=== PATIENT | male | born 1950 | race Caucasian/White ===

== ENCOUNTER 2019-06-28 21:07 | Emergency (ER) | payer MEDICARE ==
[~2019-06-28] VITALS: Ht 180.3 cm; Wt 179.6 kg
[~2019-06-28 21:07] MED LIST: AMLODIPINE BESIL1 GM PO; CYCLOBENZAPRINE5 MG PO; DUTOPROL 100-11 EACH PO; K DUR10 MEQ PO; LEVOTHYROXINE125 MCG PO; LORATADINE10 MG PO; METFORMIN HCL850 MG PO; MOBIC7.5 MG/5 M PO; NIACIN500 MG PO; PRAVASTATIN SOD40 MG PO; SERTRALINE HCL100 MG PO
[2019-06-28] MEDS ORDERED: SODIUM CHLORIDE 0.9% 1000ML 1,000 ML IV SCH (22:00)
--- NOTE | 2019-06-28 23:08 | Diagnostic Imaging Report ---
EXAM: CT Abdomen and Pelvis WITHOUT contrast INDICATION: Hematuria ^[id number] ^[id number] COMPARISON: None. TECHNIQUE: Abdomen and pelvis were scanned utilizing a multidetector helical scanner from the lung base to the pubic symphysis without administration of IV contrast. Absence of intravenous contrast decreases sensitivity for detection of focal lesions and vascular pathology. Coronal and sagittal reformations were obtained. Routine protocol was performed. IV CONTRAST: None ORAL CONTRAST: Water COMPLICATIONS: None RADIATION DOSE: Total DLP: 843.08 mGy*cm Estimated effective dose: (DLP x 0.015 x size factor) mSv CTDIvol has been reviewed. It is below the limits set by the Radiation Protocol Committee (RPC). FINDINGS: Limited study due to body habitus. LINES and TUBES: None. LOWER THORAX: Coronary artery calcifications. Mild bibasilar atelectasis/scarring. HEPATOBILIARY: No focal hepatic lesions. No biliary ductal dilation. GALLBLADDER: Not distended, limiting evaluation. There is minimal surrounding fat stranding. No wall thickening. SPLEEN: Splenomegaly. PANCREAS: No focal masses or ductal dilatation. ADRENALS: No adrenal nodules KIDNEYS/URETERS: No hydronephrosis. Limited for evaluation of renal parenchyma without intravenous contrast. 4.6 cm exophytic left renal posterior superior pole hypodensity, could represent a cyst. 0.9 cm left renal inferior pole calculus. GI TRACT: No evidence of bowel obstruction. Colonic diverticulosis without definite evidence of diverticulitis in the visualized portion. Appendix is normal. PELVIC ORGANS/BLADDER: Suspected left anterior bladder diverticulum Evaluation is markedly limited due to artifacts and underpenetration. LYMPH NODES: No lymphadenopathy. VESSELS: Moderate atherosclerotic obscuration of abdominal aorta. No aneurysmal dilatation of abdominal aorta. PERITONEUM / RETROPERITONEUM: No free air or fluid. BONES: Advanced degenerative changes of the bilateral hips. Old fracture deformity of the posterior left 11th rib. Degenerative changes of spine. SOFT TISSUES: Fat-containing left lower abdominal wall hernia with small amount of dependent density likely fluid. Partially seen small to moderate size fat-containing right inguinal hernia. IMPRESSION: 1. Markedly limited study due to body habitus. 2. Left renal inferior pole 0.9 cm calculus. No definite evidence of obstructive urolithiasis. 3. Left renal posterior superior pole lesion, could represent a cyst, however cannot be fully characterized without intravenous contrast. 4. Splenomegaly. 5. Underdistended gallbladder with mild surrounding fat stranding. 6. Abdominal wall and right inguinal hernias. 7. Colonic diverticulosis without definite evidence of diverticulitis. Some bowel loops in left abdomen cannot be evaluated due to artifacts. Signed by: Dr. Sukh Lennon MD on 06/28/2019 11:05 PM
[2019-06-28] MEDS ORDERED: CEFTRIAXONE SOD 1 GM/NS 50 ML 50 ML IV ONE (23:15)
[2019-06-28] MEDS ORDERED: SODIUM CHLORIDE 0.9% 100 ML ONE (23:15)
[2019-06-28] MEDS ORDERED: CEFTRIAXONE SOD 1 GM VIAL ONE (23:15)
== END 2019-06-28 23:45 | disposition home or self-care (01) ==
LOC: FSED 21:07
DX: N30.91 Cystitis, unspecified with hematuria (principal); N20.0 Calculus of kidney; E11.9 Type 2 diabetes mellitus without complications; K40.90 Unilateral inguinal hernia, without obstruction or gangrene, not specified as recurrent; I10 Essential (primary) hypertension; E03.9 Hypothyroidism, unspecified
CPT/HCPCS: 74176; 80048; 81003; 85025; 87086; 99284; J0696; J7050

== ENCOUNTER 2020-06-21 22:31 | Inpatient (IN) | payer MEDICARE ==
[~2020-06-21] VITALS: Ht 180.3 cm; Wt 162.9 kg
[2020-06-21] MEDS ORDERED: SODIUM CHLORIDE 0.9% 1000ML 1,000 ML IV SCH (23:30)
[2020-06-22] VITALS (9 sets, daily range): BP systolic 132–164; BP diastolic 51–72
[2020-06-22] MEDS ORDERED: SODIUM CHLORIDE 0.9% 1000ML 1,000 ML ONE ×2 (00:51→02:37)
[2020-06-22] MEDS ORDERED: SODIUM CHLORIDE 0.9% 50ML 50 ML ONE (01:20)
[2020-06-22] MEDS ORDERED: IOPAMIDOL 370 MG/ML 200 ML INFUS..BTL INJ ONE (01:20)
[2020-06-22] MEDS ORDERED: MORPHINE SULFATE 2 MG/ML SYR 1ML IV PRN (02:15)
[2020-06-22] MEDS: PIPER-TAZ 3.375 GM / NS 50ML IV SCH ×3 (02:33→21:15)
[2020-06-22] MEDS: SODIUM CHLORIDE 0.9% 1000ML 1,000 ML IV SCH ×3 (02:34→22:58)
[2020-06-22] MEDS ORDERED: PIPER-TAZ 3.375 GM 50 ML ONE (02:37)
[2020-06-22] MEDS ORDERED: INFLUENZA VIRUS VAC SPLIT INJ 0.5 ML SYR IM SCH (04:52)
[2020-06-22] MEDS ORDERED: METOPROLOL SUCC50 MG PO (05:37)
[2020-06-22] MEDS ORDERED: REFRESH PLUS1 EACH OU (05:37)
[2020-06-22] MEDS ORDERED: LOSARTAN POTAS100 MG PO (05:37)
[2020-06-22] MEDS ORDERED: LUBRICANT EYE3.5 G1 OU (05:37)
[2020-06-22] MEDS ORDERED: ALLOPURINOL300 MG PO (05:37)
[2020-06-22] MEDS ORDERED: LEVOTHYROXINE50 MCG PO (05:37)
[2020-06-22] MEDS ORDERED: LEVOTHYROXINE150 MCG PO (05:37)
[2020-06-22] MEDS ORDERED: REFRESH OU (05:37)
[2020-06-22] MEDS ORDERED: METFORMIN HCL500 MG PO (05:37)
[2020-06-22] MEDS ORDERED: FINASTERIDE5 MG PO (05:37)
[2020-06-22] MEDS ORDERED: VITAMIN B-121000 MCG PO (05:37)
[2020-06-22 05:44] LABS: BASOPHILS % 0.3 % (0.0-1.0); EOSINOPHILS # (AUTO) 0.2 (0.0-0.4); EOSINOPHILS % 2.7 % (0.0-6.0); HEMOGLOBIN 11.6 g/dL (14.0-18.0); LYMPHOCYTES # (AUTO) 0.7 (1.0-3.2); LYMPHOCYTES % 9.9 % (18.0-39.1); MEAN CORPUSCULAR HEMOGLOBIN 24.3 pg (28-32); MEAN CORPUSCULAR HGB CONC 30.5 g/dL (31-35); MEAN CORPUSCULAR VOLUME 79.5 fL (81-99); MONOCYTES # (AUTO) 0.6 (0.2-0.8); MONOCYTES % 9.3 % (4.4-11.3); NEUTROPHILS # (AUTO) 5.2 (2.1-6.9); NEUTROPHILS % 77.4 % (38.7-80.0); PLATELET COUNT 177 x10e3/uL (140-360); RED BLOOD COUNT 4.78 x10e6/uL (4.3-5.7); RED CELL DISTRIBUTION WIDTH 17.4 % (11.7-14.4)
[2020-06-22 06:06] LABS: ALANINE AMINOTRANSFERASE 9 IU/L (0-55); ALBUMIN 3.1 g/dL (3.5-5.0); ALKALINE PHOSPHATASE 65 IU/L (40-150); ANION GAP 14.4 mmol/L (8-16); BLOOD UREA NITROGEN 15 mg/dL (7-26); BUN/CREATININE RATIO 13 (6-25); CALCIUM 7.9 mg/dL (8.4-10.2); CARBON DIOXIDE 21 mmol/L (22-29); CHLORIDE 105 mmol/L (98-107); CREATININE, SERUM 1.15 mg/dL (0.72-1.25); EST GLOMERULAR FILTRATION RATE > 60 ML/MIN (60-); GLUCOSE 109 mg/dL (74-118); POTASSIUM 3.4 mmol/L (3.5-5.1); SODIUM 137 mmol/L (136-145)
[2020-06-22 06:21] LABS: CHOL/HDL RATIO 5.3 (3.9-4.7); MAGNESIUM 1.9 MG/DL (1.3-2.1); PHOSPHORUS 3.5 MG/DL (2.3-4.7)
[2020-06-22] MEDS: METRONIDAZOLE 500MG/NS 100ML 100 ML IV SCH ×3 (08:30→22:58)
[2020-06-22] MEDS: PANTOPRAZOLE 40 MG 10ML VIAL IV SCH (09:00)
[2020-06-22] MEDS ORDERED: POTASSIUM CHLORIDE 20MEQ/100ML 100 ML IV ONE (10:00)
[2020-06-22] MEDS ORDERED: MORPHINE SULFATE INJ 4 MG/ML INJ 1ML IV PRN (10:45)
[2020-06-23] VITALS (8 sets, daily range): BP systolic 118–161; BP diastolic 52–78
[2020-06-23] MEDS: PIPER-TAZ 3.375 GM / NS 50ML IV SCH ×3 (05:51→21:00)
[2020-06-23] MEDS: SODIUM CHLORIDE 0.9% 1000ML 1,000 ML IV SCH ×3 (06:53→18:15)
[2020-06-23 07:58] LABS: BASOPHILS % 0.1 % (0.0-1.0); EOSINOPHILS # (AUTO) 0.2 (0.0-0.4); EOSINOPHILS % 2.3 % (0.0-6.0); HEMATOCRIT 37.7 % (38.2-49.6); HEMOGLOBIN 11.3 g/dL (14.0-18.0); LYMPHOCYTES # (AUTO) 0.6 (1.0-3.2); LYMPHOCYTES % 8.2 % (18.0-39.1); MEAN CORPUSCULAR HEMOGLOBIN 24.6 pg (28-32); MONOCYTES # (AUTO) 0.5 (0.2-0.8); NEUTROPHILS # (AUTO) 5.6 (2.1-6.9); NEUTROPHILS % 81.8 % (38.7-80.0); PLATELET COUNT 176 x10e3/uL (140-360); RED CELL DISTRIBUTION WIDTH 17.8 % (11.7-14.4)
[2020-06-23] MEDS: METRONIDAZOLE 500MG/NS 100ML 100 ML IV SCH ×2 (08:00→16:13)
[2020-06-23] MEDS: PANTOPRAZOLE 40 MG 10ML VIAL IV SCH (08:00)
[2020-06-23 08:19] LABS: ANION GAP 14.5 mmol/L (8-16); BLOOD UREA NITROGEN 10 mg/dL (7-26); BUN/CREATININE RATIO 9 (6-25); CARBON DIOXIDE 23 mmol/L (22-29); CHLORIDE 110 mmol/L (98-107); CREATININE, SERUM 1.06 mg/dL (0.72-1.25); EST GLOMERULAR FILTRATION RATE > 60 ML/MIN (60-); GLUCOSE 97 mg/dL (74-118); POTASSIUM 3.5 mmol/L (3.5-5.1); SODIUM 144 mmol/L (136-145)
[2020-06-23] MEDS ORDERED: DICYCLOMINE HCL 10 MG CAP PO SCH (09:00)
[2020-06-23 14:36] LABS: C DIFFICILE TOXIN A&B AMP PROB NEGATIVE (NEGATIVE); WBC,FECAL (FECAL LACTOFERRIN) POSITIVE (NEGATIVE)
[2020-06-24] VITALS: BP 143/57
[2020-06-24] MEDS: METRONIDAZOLE 500MG/NS 100ML 100 ML IV SCH ×2 (00:18→08:29)
[2020-06-24] MEDS: SODIUM CHLORIDE 0.9% 1000ML 1,000 ML IV SCH (03:30)
[2020-06-24] MEDS: PIPER-TAZ 3.375 GM / NS 50ML IV SCH (05:09)
[2020-06-24 05:43] VITALS: BP 150/71
[2020-06-24 07:56] VITALS: BP 163/69
[2020-06-24 08:03] VITALS: BP 163/69
[2020-06-24] MEDS: PANTOPRAZOLE 40 MG 10ML VIAL IV SCH (08:30)
[2020-06-24] MEDS ORDERED: FLAGYL500 MG PO (09:24)
[2020-06-24] MEDS ORDERED: COLACE100 MG PO (09:24)
[2020-06-24] MEDS ORDERED: PANTOPRAZOLE SO40 MG PO (09:24)
[2020-06-24] MEDS ORDERED: SENNA LAX8.6 MG PO (09:24)
[2020-06-24] MEDS ORDERED: POTASSIUM CHLORIDE 20 MEQ TAB CR PO ONE (10:00)
== END 2020-06-24 11:02 | disposition home or self-care (01) | DRG 389 ==
LOC: FSED 22:36 → ERHOLD 06-22 02:11 → MED/SURG2 06-22 03:40
PROVIDERS: ADMIT Internal Medicine; ATTEND Internal Medicine
DX: K56.609 Unspecified intestinal obstruction, unspecified as to partial versus complete obstruction (principal); N13.6 Pyonephrosis; Z68.43 Body mass index [BMI] 50.0-59.9, adult; E11.9 Type 2 diabetes mellitus without complications; K42.9 Umbilical hernia without obstruction or gangrene; E66.01 Morbid (severe) obesity due to excess calories; I10 Essential (primary) hypertension; Z11.59 Encounter for screening for other viral diseases
CPT/HCPCS: 36415; 74019; 74177; 80048; 80053; 80061; 81003; 82553; 82948; 83036; 83630; 83735; 83993; 84100; 84484; 85025; 87045; 87086; 87177; 87186; 87493; 93005; 96361; 97139; 99284; J2543; J3480; J7030; Q9967; U0002

== ENCOUNTER 2021-01-31 14:30 | Emergency (ER) | payer MEDICARE ==
[~2021-01-31] VITALS: Ht 180.3 cm; Wt 162.8 kg
[~2021-01-31 14:30] MED LIST changes: +ALLOPURINOL300 MG PO; +COLACE100 MG PO; +FINASTERIDE5 MG PO; +FLAGYL500 MG PO; +LEVOTHYROXINE150 MCG PO; +LEVOTHYROXINE50 MCG PO; +LOSARTAN POTAS100 MG PO; +LUBRICANT EYE3.5 G1 OU; +METFORMIN HCL500 MG PO; +METOPROLOL SUCC50 MG PO; +PANTOPRAZOLE SO40 MG PO; +REFRESH OU; +REFRESH PLUS1 EACH OU; +SENNA LAX8.6 MG PO; +VITAMIN B-121000 MCG PO
[2021-01-31] MEDS ORDERED: SODIUM CHLORIDE 0.9% 1000ML 1,000 ML IV SCH (15:00)
[2021-01-31] MEDS ORDERED: IOPAMIDOL 370 MG/ML 200 ML INFUS..BTL INJ ONE ×2 (15:14→15:15)
[2021-01-31] MEDS ORDERED: SODIUM CHLORIDE 0.9% 250ML 0 ML ONE (15:14)
[2021-01-31 15:46] LABS: BASOPHILS # (AUTO) 0.1 (0.0-0.1); BASOPHILS % 0.7 % (0.0-1.0); EOSINOPHILS # (AUTO) 0.4 (0.0-0.4); EOSINOPHILS % 3.4 % (0.0-6.0); HEMATOCRIT 37.4 % (38.2-49.6); HEMOGLOBIN 11.9 g/dL (14.0-18.0); LYMPHOCYTES # (AUTO) 0.7 (1.0-3.2); LYMPHOCYTES % 6.8 % (18.0-39.1); MEAN CORPUSCULAR HEMOGLOBIN 28.5 pg (28-32); MEAN CORPUSCULAR HGB CONC 31.8 g/dL (31-35); MEAN CORPUSCULAR VOLUME 89.7 fL (81-99); MONOCYTES # (AUTO) 0.5 (0.2-0.8); MONOCYTES % 4.4 % (4.4-11.3); NEUTROPHILS # (AUTO) 8.7 (2.1-6.9); NEUTROPHILS % 83.6 % (38.7-80.0); PLATELET COUNT 214 x10e3/uL (140-360); RED BLOOD COUNT 4.17 x10e6/uL (4.3-5.7); RED CELL DISTRIBUTION WIDTH 14.6 % (11.7-14.4)
[2021-01-31 16:05] LABS: ANION GAP 16.9 mmol/L (8-16); BLOOD UREA NITROGEN 21 mg/dL (7-26); BUN/CREATININE RATIO 19 (6-25); CALCIUM 8.6 mg/dL (8.4-10.2); CARBON DIOXIDE 18 mmol/L (22-29); CHLORIDE 105 mmol/L (98-107); CREATININE, SERUM 1.09 mg/dL (0.72-1.25); EST GLOMERULAR FILTRATION RATE > 60 ML/MIN (60-); GLUCOSE 117 mg/dL (74-118); POTASSIUM 3.9 mmol/L (3.5-5.1); SODIUM 136 mmol/L (136-145)
[2021-01-31] MEDS ORDERED: CEFTRIAXONE SOD 1 GM VIAL IV SCH (16:45)
[2021-01-31 16:55] LABS: CLARITY,URINE TURBID (CLEAR); COLOR,URINE RED (YELLOW); KETONES,URINE NEGATIVE (NEGATIVE); LEUKOCYTE ESTERASE ,URINE SMALL (NEGATIVE); NITRITE,URINE NEGATIVE (NEGATIVE); PROTEIN,URINE DIPSTICK >=300 (NEGATIVE); URINE UROBILINOGEN 0.2 mg/dL (0.2 - 1)
[2021-01-31] MEDS ORDERED: CEFTRIAXONE SOD 1 GM in SODIUM CHLORIDE 0.9% 50ML 50 ML IV SCH (17:00)
[2021-01-31] MEDS ORDERED: SODIUM CHLORIDE 0.9% 500ML 500 ML ONE (17:08)
[2021-01-31 17:09] LABS: BACTERIA,URINE RARE /HPF; RBC,URINE 21-50 /HPF (0-5); WBC,URINE (MAN) 0-5 /HPF (0-5)
[2021-01-31] MEDS ORDERED: CEFUROXIME250 MG PO (19:13)
[2021-01-31 21:40] VITALS: BP 95/67
== END 2021-01-31 21:52 | disposition home or self-care (01) ==
LOC: ER 14:49
DX: R31.9 Hematuria, unspecified (principal); N13.30 Unspecified hydronephrosis; K40.90 Unilateral inguinal hernia, without obstruction or gangrene, not specified as recurrent; I10 Essential (primary) hypertension; E11.9 Type 2 diabetes mellitus without complications; E78.5 Hyperlipidemia, unspecified; E03.9 Hypothyroidism, unspecified; E66.9 Obesity, unspecified
CPT/HCPCS: 36415; 51700; 72194; 80048; 81001; 85025; 87086; 99284; J0696; J7040; Q9967; J7050

== ENCOUNTER 2021-02-22 11:36 | Emergency (ER) | payer MEDICARE ==
[~2021-02-22] VITALS: Ht 180.3 cm; Wt 162.8 kg
[~2021-02-22 11:36] MED LIST changes: +CEFUROXIME250 MG PO
[2021-02-22 12:46] LABS: CLARITY,URINE CLEAR (CLEAR); COLOR,URINE YELLOW (YELLOW); KETONES,URINE NEGATIVE (NEGATIVE); LEUKOCYTE ESTERASE ,URINE LARGE (NEGATIVE); NITRITE,URINE NEGATIVE (NEGATIVE); PROTEIN,URINE DIPSTICK TRACE (NEGATIVE); URINE UROBILINOGEN 0.2 mg/dL (0.2 - 1)
[2021-02-22] MEDS ORDERED: CIPRO500 MG PO (12:58)
== END 2021-02-22 15:02 | disposition home or self-care (01) ==
LOC: ER 11:43
DX: T83.098A Other mechanical complication of other urinary catheter, initial encounter (principal); N39.0 Urinary tract infection, site not specified; I10 Essential (primary) hypertension; E11.9 Type 2 diabetes mellitus without complications; E78.5 Hyperlipidemia, unspecified; E03.9 Hypothyroidism, unspecified; E78.00 Pure hypercholesterolemia, unspecified; E66.9 Obesity, unspecified
CPT/HCPCS: 51700; 81001; 87086; 87186; 99283

== ENCOUNTER 2021-03-04 01:11 | Inpatient (IN) | payer MEDICARE ==
[2021-03-04] VITALS (9 sets, daily range): BP systolic 123–144; BP diastolic 70–79
[~2021-03-04] VITALS: Ht 180.3 cm; Wt 162.8 kg
[~2021-03-04 01:11] MED LIST changes: +CIPRO500 MG PO
[2021-03-04] MEDS ORDERED: ONDANSETRON HCL INJ 2MG/ML 2ML 2 MG/ML VIAL IV STA (01:17)
[2021-03-04 01:31] LABS: BASOPHILS # (AUTO) 0.1 (0.0-0.1); BASOPHILS % 0.4 % (0.0-1.0); EOSINOPHILS # (AUTO) 0.1 (0.0-0.4); EOSINOPHILS % 0.4 % (0.0-6.0); HEMATOCRIT 44.7 % (38.2-49.6); HEMOGLOBIN 14.3 g/dL (14.0-18.0); LYMPHOCYTES # (AUTO) 0.7 (1.0-3.2); MEAN CORPUSCULAR HEMOGLOBIN 28.2 pg (28-32); MEAN CORPUSCULAR VOLUME 88.2 fL (81-99); MONOCYTES # (AUTO) 0.4 (0.2-0.8); MONOCYTES % 3.2 % (4.4-11.3); NEUTROPHILS # (AUTO) 10.8 (2.1-6.9); NEUTROPHILS % 89.6 % (38.7-80.0); PLATELET COUNT 156 x10e3/uL (140-360); RED BLOOD COUNT 5.07 x10e6/uL (4.3-5.7); RED CELL DISTRIBUTION WIDTH 16.4 % (11.7-14.4)
[2021-03-04 01:34] LABS: BACTERIA,URINE MANY /HPF; CLARITY,URINE CLOUDY (CLEAR); COLOR,URINE YELLOW (YELLOW); KETONES,URINE NEGATIVE (NEGATIVE); LEUKOCYTE ESTERASE ,URINE MODERATE (NEGATIVE); MUCUS,URINE FEW (RARE); NITRITE,URINE NEGATIVE (NEGATIVE); PROTEIN,URINE DIPSTICK 1+ (NEGATIVE); RBC,URINE 21-50 /HPF (0-5); URINE UROBILINOGEN 0.2 mg/dL (0.2 - 1); WBC,URINE (MAN) 21-50 /HPF (0-5)
[2021-03-04 01:50] LABS: AMYLASE 27 U/L (25-125); LIPASE 28 U/L (8-78)
[2021-03-04 01:52] LABS: ALBUMIN 3.4 g/dL (3.5-5.0); ALBUMIN/GLOBULIN RATIO 0.8 (0.8-2.0); ANION GAP 17.5 mmol/L (8-16); CALCIUM 8.8 mg/dL (8.4-10.2); CREATININE, SERUM 0.95 mg/dL (0.72-1.25); POTASSIUM 4.5 mmol/L (3.5-5.1)
[2021-03-04] MEDS ORDERED: SODIUM CHLORIDE 0.9% 50ML 50 ML ONE (02:14)
[2021-03-04] MEDS ORDERED: IOPAMIDOL 370 MG/ML 200 ML INFUS..BTL INJ ONE (02:14)
[2021-03-04] MEDS: PIPERACILLIN/TAZOBACTAM 3.375 GM in SODIUM CHLORIDE 0.9% 50ML 50 ML IV SCH ×3 (03:43→20:55)
[2021-03-04] MEDS ORDERED: DEXTROSE 50% SYRINGE 50 ML IV PRN ×2 (03:45→13:15)
[2021-03-04] MEDS ORDERED: ONDANSETRON HCL INJ 2MG/ML 2ML 2 MG/ML VIAL IV PRN (03:45)
[2021-03-04] MEDS ORDERED: MORPHINE SULFATE INJ 4 MG/ML INJ 1ML IV PRN (03:45)
[2021-03-04] MEDS: SODIUM CHLORIDE 0.9% 1000ML 1,000 ML IV SCH ×3 (06:52→19:45)
[2021-03-04] MEDS ORDERED: INSULIN REGULAR, HUMAN 100 UNIT/1 ML SQ SCH (07:30)
[2021-03-04] MEDS: SODIUM CHLORIDE 0.9% 250ML IRRIG IR SCH ×4 (10:00→22:18)
[2021-03-04] MEDS ORDERED: IOPAMIDOL 300MG/ML 50ML INFUS..BTL IV ONE (10:45)
[2021-03-04] MEDS ORDERED: B&O 60MG R/S 60 MG SUPP PR ONE (10:45)
[2021-03-04] MEDS ORDERED: ACETAMINOPHEN 1000 MG/100 ML 100 ML IV ONE (12:11)
[2021-03-04] MEDS ORDERED: B&O 60MG R/S 60 MG SUPP PR PRN (12:15)
[2021-03-04] MEDS ORDERED: FENTANYL CITRATE/PF 100MCG/2 ML INJ ONE (12:25)
[2021-03-04] MEDS ORDERED: CLONIDINE HCL 0.1 MG/24 HR 1 EA PATCH TOP PRN (13:30)
[2021-03-04] MEDS ORDERED: ONDANSETRON HCL INJ 2MG/ML 2ML 2 MG/ML VIAL ONE (13:55)
[2021-03-04] MEDS ORDERED: PROPOFOL IV EMULSION 10 MG/ML 20 ML VIAL ONE (13:55)
[2021-03-04] MEDS ORDERED: DEXAMETHASONE SOD PHOS INJ 4 MG/ML VIAL ONE (13:55)
[2021-03-04] MEDS ORDERED: GLYCOPYRROLATE INJ 0.2 MG/ML VIAL ONE (13:55)
[2021-03-04] MEDS ORDERED: POVIDONE IODINE 0.05% 0.05 % ML PO ONE (13:55)
[2021-03-04] MEDS ORDERED: ATROPINE SULFATE 1 MG/ML VIAL ONE (13:55)
[2021-03-04] MEDS ORDERED: SEVOFLURANE INHAL SOLN 250 ML PEN BTL ONE (13:55)
[2021-03-04] MEDS ORDERED: LIDOCAINE HCL 2% LOCAL INJ 5 ML SDV VIAL INJ ONE (13:55)
[2021-03-04] MEDS ORDERED: SUCCINYLCHOLINE CHLORIDE 20 MG/ML 10ML VIAL ONE (13:55)
[2021-03-04] MEDS: INSULIN LISPRO 100 UNIT/1 ML 3ML VIAL SQ SCH ×2 (16:30→21:00)
[2021-03-04] MEDS: SERTRALINE HCL 100 MG TAB PO SCH (20:55)
[2021-03-04] MEDS: HEPARIN SOD (PORCINE) 5,000 UNIT/ML VIAL SC SCH (20:55)
[2021-03-04] MEDS: PRAVASTATIN 20 MG TAB PO SCH (20:55)
[2021-03-05] VITALS (8 sets, daily range): BP systolic 128–148; BP diastolic 64–99
[2021-03-05] MEDS: SODIUM CHLORIDE 0.9% 1000ML 1,000 ML IV SCH ×2 (02:35→11:45)
[2021-03-05] MEDS: SODIUM CHLORIDE 0.9% 250ML IRRIG IR SCH ×6 (02:35→22:00)
[2021-03-05] MEDS: PIPERACILLIN/TAZOBACTAM 3.375 GM in SODIUM CHLORIDE 0.9% 50ML 50 ML IV SCH ×3 (04:06→20:00)
[2021-03-05] MEDS: LEVOTHYROXINE SODIUM 50 MCG TAB PO SCH (06:00)
[2021-03-05 06:02] LABS: BASOPHILS % 0.3 % (0.0-1.0); EOSINOPHILS # (AUTO) 0.1 (0.0-0.4); EOSINOPHILS % 1.1 % (0.0-6.0); HEMATOCRIT 37.5 % (38.2-49.6); HEMOGLOBIN 11.9 g/dL (14.0-18.0); LYMPHOCYTES % 10.7 % (18.0-39.1); MEAN CORPUSCULAR HEMOGLOBIN 28.5 pg (28-32); MEAN CORPUSCULAR HGB CONC 31.7 g/dL (31-35); MEAN CORPUSCULAR VOLUME 89.9 fL (81-99); MONOCYTES # (AUTO) 0.6 (0.2-0.8); MONOCYTES % 6.5 % (4.4-11.3); NEUTROPHILS # (AUTO) 7.2 (2.1-6.9); NEUTROPHILS % 80.8 % (38.7-80.0); PLATELET COUNT 144 x10e3/uL (140-360); RED BLOOD COUNT 4.17 x10e6/uL (4.3-5.7); RED CELL DISTRIBUTION WIDTH 16.2 % (11.7-14.4)
[2021-03-05 06:50] LABS: ALBUMIN/GLOBULIN RATIO 0.9 (0.8-2.0); ALKALINE PHOSPHATASE 60 IU/L (40-150); ANION GAP 15.8 mmol/L (8-16); BLOOD UREA NITROGEN 16 mg/dL (7-26); BUN/CREATININE RATIO 18 (6-25); CALCIUM 7.8 mg/dL (8.4-10.2); CARBON DIOXIDE 22 mmol/L (22-29); CHLORIDE 105 mmol/L (98-107); CREATININE, SERUM 0.89 mg/dL (0.72-1.25); EST GLOMERULAR FILTRATION RATE 84 ML/MIN (60-); GLUCOSE 103 mg/dL (74-118); POTASSIUM 3.8 mmol/L (3.5-5.1); SODIUM 139 mmol/L (136-145)
[2021-03-05 06:54] LABS: ALANINE AMINOTRANSFERASE < 6 IU/L (0-55)
[2021-03-05 07:28] LABS: FREE THYROXINE INDEX 1.482 (1.4-3.8); THYROID STIMULATING HORMONE 27.436 uIU/mL (0.350-4.940)
[2021-03-05] MEDS: INSULIN LISPRO 100 UNIT/1 ML 3ML VIAL SQ SCH ×4 (07:30→21:00)
[2021-03-05] MEDS: LOSARTAN POTASSIUM 100 MG TAB PO SCH (09:00)
[2021-03-05] MEDS: ALLOPURINOL 300 MG TAB PO SCH (09:00)
[2021-03-05] MEDS: PANTOPRAZOLE SOD 40 MG TABEC PO SCH (09:00)
[2021-03-05] MEDS: HEPARIN SOD (PORCINE) 5,000 UNIT/ML VIAL SC SCH ×2 (09:00→21:00)
[2021-03-05] MEDS: CYANOCOBALAMIN 1,000 MCG TAB PO SCH (09:00)
[2021-03-05] MEDS: METOPROLOL SUCCINATE 50 MG TAB XL PO SCH (10:15)
[2021-03-05] MEDS ORDERED: MINERAL OIL 132 ML BTL PR NR (10:30)
[2021-03-05] MEDS: SERTRALINE HCL 100 MG TAB PO SCH (21:00)
[2021-03-05] MEDS: PRAVASTATIN 20 MG TAB PO SCH (21:00)
[2021-03-06] VITALS (8 sets, daily range): BP systolic 136–167; BP diastolic 69–90
[2021-03-06] MEDS: SODIUM CHLORIDE 0.9% 250ML IRRIG IR SCH ×4 (02:00→14:00)
[2021-03-06] MEDS: SODIUM CHLORIDE 0.9% 1000ML 1,000 ML IV SCH ×3 (02:09→11:35)
[2021-03-06] MEDS: PIPERACILLIN/TAZOBACTAM 3.375 GM in SODIUM CHLORIDE 0.9% 50ML 50 ML IV SCH ×3 (04:43→20:50)
[2021-03-06] MEDS: LEVOTHYROXINE SODIUM 50 MCG TAB PO SCH (06:40)
[2021-03-06] MEDS: INSULIN LISPRO 100 UNIT/1 ML 3ML VIAL SQ SCH ×4 (07:30→21:00)
[2021-03-06] MEDS: PANTOPRAZOLE SOD 40 MG TABEC PO SCH (09:00)
[2021-03-06] MEDS ORDERED: DIATRIZOATE MEGL/DIATRIZOA SOD 30 ML BTL PO ONE (09:08)
[2021-03-06] MEDS ORDERED: SODIUM CHLORIDE 0.9% 50ML 50 ML ONE ×2 (09:08→14:13)
[2021-03-06] MEDS ORDERED: IOPAMIDOL 370 MG/ML 200 ML INFUS..BTL INJ ONE ×2 (09:08→14:13)
[2021-03-06] MEDS: METOPROLOL SUCCINATE 50 MG TAB XL PO SCH (09:55)
[2021-03-06] MEDS: LOSARTAN POTASSIUM 100 MG TAB PO SCH (09:55)
[2021-03-06] MEDS ORDERED: MINERAL OIL 132 ML BTL PR ONE (10:30)
[2021-03-06] MEDS: HEPARIN SOD (PORCINE) 5,000 UNIT/ML VIAL SC SCH ×2 (11:30→21:00)
[2021-03-06] MEDS: ALLOPURINOL 300 MG TAB PO SCH (17:24)
[2021-03-06] MEDS: CYANOCOBALAMIN 1,000 MCG TAB PO SCH (17:24)
[2021-03-06] MEDS: SERTRALINE HCL 100 MG TAB PO SCH (20:44)
[2021-03-06] MEDS: PRAVASTATIN 20 MG TAB PO SCH (20:44)
[2021-03-07] VITALS: BP 140/67
[2021-03-07 04:00] VITALS: BP 135/68
[2021-03-07] MEDS: PIPERACILLIN/TAZOBACTAM 3.375 GM in SODIUM CHLORIDE 0.9% 50ML 50 ML IV SCH ×2 (04:01→13:16)
[2021-03-07] MEDS: SODIUM CHLORIDE 0.9% 1000ML 1,000 ML IV SCH ×2 (04:01→13:09)
[2021-03-07] MEDS: LEVOTHYROXINE SODIUM 50 MCG TAB PO SCH (06:00)
[2021-03-07 06:32] LABS: BASOPHILS % 0.5 % (0.0-1.0); EOSINOPHILS # (AUTO) 0.2 (0.0-0.4); EOSINOPHILS % 3.3 % (0.0-6.0); HEMATOCRIT 35.7 % (38.2-49.6); HEMOGLOBIN 11.1 g/dL (14.0-18.0); LYMPHOCYTES # (AUTO) 0.7 (1.0-3.2); LYMPHOCYTES % 11.1 % (18.0-39.1); MEAN CORPUSCULAR HEMOGLOBIN 28.2 pg (28-32); MEAN CORPUSCULAR HGB CONC 31.1 g/dL (31-35); MEAN CORPUSCULAR VOLUME 90.8 fL (81-99); MONOCYTES # (AUTO) 0.4 (0.2-0.8); MONOCYTES % 5.7 % (4.4-11.3); NEUTROPHILS # (AUTO) 5.1 (2.1-6.9); NEUTROPHILS % 78.9 % (38.7-80.0); PLATELET COUNT 121 x10e3/uL (140-360); RED BLOOD COUNT 3.93 x10e6/uL (4.3-5.7)
[2021-03-07 06:40] LABS: ANION GAP 10.3 mmol/L (8-16); CALCIUM 7.7 mg/dL (8.4-10.2); CREATININE, SERUM 0.8 mg/dL (0.72-1.25); POTASSIUM 3.3 mmol/L (3.5-5.1)
[2021-03-07] MEDS: INSULIN LISPRO 100 UNIT/1 ML 3ML VIAL SQ SCH ×3 (07:30→16:30)
[2021-03-07 08:48] VITALS: BP 136/81
[2021-03-07] MEDS: HEPARIN SOD (PORCINE) 5,000 UNIT/ML VIAL SC SCH (09:36)
[2021-03-07] MEDS: CYANOCOBALAMIN 1,000 MCG TAB PO SCH (09:37)
[2021-03-07] MEDS: METOPROLOL SUCCINATE 50 MG TAB XL PO SCH (09:37)
[2021-03-07] MEDS: PANTOPRAZOLE SOD 40 MG TABEC PO SCH (09:37)
[2021-03-07] MEDS: ALLOPURINOL 300 MG TAB PO SCH (09:37)
[2021-03-07] MEDS: LOSARTAN POTASSIUM 100 MG TAB PO SCH (09:38)
[2021-03-07 09:44] VITALS: BP 136/81
[2021-03-07] MEDS ORDERED: ONDANSETRON HCL 4 MG ORAL DISINTEGRATING TAB PO PRN (10:30)
[2021-03-07 11:32] VITALS: BP 139/67
[2021-03-07] MEDS ORDERED: ACETAMINOPHEN 325 MG TAB PO PRN (12:15)
[2021-03-07] MEDS ORDERED: AMOXICILLIN500 MG PO (15:15)
[2021-03-07] MEDS ORDERED: COLACE100 MG PO (15:29)
[2021-03-07 16:00] VITALS: BP 133/68
== END 2021-03-07 20:56 | disposition home or self-care (01) | DRG 982 ==
LOC: ER 01:16 → ERHOLD 03:41 → MED/SURG2 05:04
PROVIDERS: ADMIT Internal Medicine; ATTEND Internal Medicine
PROC: 0T788ZZ Dilation of Bilateral Ureters, Via Natural or Artificial Opening Endoscopic (ICD-10-PCS; 2021-03-04)
PROC: BT141ZZ Fluoroscopy of Kidneys, Ureters and Bladder using Low Osmolar Contrast (ICD-10-PCS; 2021-03-04)
PROC: 0VNSXZZ Release Penis, External Approach (ICD-10-PCS; principal; 2021-03-04 12:00)
DX: K56.600 Partial intestinal obstruction, unspecified as to cause (principal); N39.0 Urinary tract infection, site not specified; Z68.43 Body mass index [BMI] 50.0-59.9, adult; N20.1 Calculus of ureter; N13.8 Other obstructive and reflux uropathy; N13.6 Pyonephrosis; K66.0 Peritoneal adhesions (postprocedural) (postinfection); Q55.8 Other specified congenital malformations of male genital organs; E66.01 Morbid (severe) obesity due to excess calories; M10.9 Gout, unspecified; E53.8 Deficiency of other specified B group vitamins; G47.33 Obstructive sleep apnea (adult) (pediatric); R16.1 Splenomegaly, not elsewhere classified; E78.5 Hyperlipidemia, unspecified; R59.1 Generalized enlarged lymph nodes; N40.1 Benign prostatic hyperplasia with lower urinary tract symptoms; B95.2 Enterococcus as the cause of diseases classified elsewhere; R33.8 Other retention of urine; E11.9 Type 2 diabetes mellitus without complications
CPT/HCPCS: 36415; 71045; 74018; 74019; 74177; 74420; 80048; 80053; 81001; 82150; 82232; 82948; 83690; 83970; 84436; 84443; 84479; 84550; 85025; 87040; 87086; 87186; 94660; 97139; 99251; 99285; C1758; C1769; J0330; J0461; J1100; J1644; J1817; J2001; J2405; J2543; J3010; J7030; Q9967

== ENCOUNTER 2021-05-22 14:34 | Emergency (ER) | payer MEDICARE ==
[~2021-05-22] VITALS: Ht 180.3 cm; Wt 162.8 kg
[~2021-05-22 14:34] MED LIST changes: +AMOXICILLIN500 MG PO
== END 2021-05-22 18:54 | disposition home or self-care (01) ==
LOC: ER 14:37
DX: Z46.6 Encounter for fitting and adjustment of urinary device (principal); I10 Essential (primary) hypertension; E11.9 Type 2 diabetes mellitus without complications; K21.9 Gastro-esophageal reflux disease without esophagitis; E78.00 Pure hypercholesterolemia, unspecified; E66.9 Obesity, unspecified
CPT/HCPCS: 51700; 99282

== ENCOUNTER 2021-06-04 01:35 | Emergency (ER) | payer MEDICARE ==
[~2021-06-04] VITALS: Ht 180.3 cm; Wt 170.1 kg
[2021-06-04 02:35] LABS: BASOPHILS # (AUTO) 0.1 (0.0-0.1); BASOPHILS % 0.6 % (0.0-1.0); EOSINOPHILS # (AUTO) 0.3 (0.0-0.4); EOSINOPHILS % 3.5 % (0.0-6.0); HEMATOCRIT 38.2 % (38.2-49.6); HEMOGLOBIN 12.2 g/dL (14.0-18.0); LYMPHOCYTES # (AUTO) 0.6 (1.0-3.2); LYMPHOCYTES % 7.8 % (18.0-39.1); MEAN CORPUSCULAR HGB CONC 31.9 g/dL (31-35); MEAN CORPUSCULAR VOLUME 90.7 fL (81-99); MONOCYTES # (AUTO) 0.6 (0.2-0.8); MONOCYTES % 6.8 % (4.4-11.3); NEUTROPHILS # (AUTO) 6.7 (2.1-6.9); NEUTROPHILS % 80.7 % (38.7-80.0); PLATELET COUNT 154 x10e3/uL (140-360); RED BLOOD COUNT 4.21 x10e6/uL (4.3-5.7)
[2021-06-04 02:42] LABS: INR 1.11; PROTHROMBIN TIME 14.5 seconds (11.9-14.5)
[2021-06-04 02:48] LABS: ALBUMIN 2.8 g/dL (3.5-5.0); ALBUMIN/GLOBULIN RATIO 0.7 (0.8-2.0); ANION GAP 13.5 mmol/L (8-16); CALCIUM 8.6 mg/dL (8.4-10.2); CREATININE, SERUM 0.81 mg/dL (0.72-1.25); POTASSIUM 3.5 mmol/L (3.5-5.1)
[2021-06-04 02:59] LABS: CLARITY,URINE TURBID (CLEAR); COLOR,URINE YELLOW (YELLOW); LEUKOCYTE ESTERASE ,URINE LARGE (NEGATIVE); NITRITE,URINE POSITIVE (NEGATIVE); PROTEIN,URINE DIPSTICK >=300 (NEGATIVE)
[2021-06-04 03:00] LABS: BACTERIA,URINE MANY /HPF; EPITHELIAL CELLS,URINE FEW /LPF; KETONES,URINE NEGATIVE (NEGATIVE); RBC,URINE 21-50 /HPF (0-5); URINE UROBILINOGEN 0.2 mg/dL (0.2 - 1); WBC,URINE (MAN) >50 /HPF (0-5)
[2021-06-04] MEDS ORDERED: CEFTRIAXONE 1 GM in SODIUM CHLORIDE 0.9% 50ML 50 ML IV ONE (03:30)
[2021-06-04] MEDS ORDERED: CEPHALEXIN500 MG PO (03:40)
[2021-06-04] MEDS ORDERED: CEFTRIAXONE 1 GM VIAL ONE (04:11)
[2021-06-04] MEDS ORDERED: SODIUM CHLORIDE 0.9% 100 ML ONE (04:12)
== END 2021-06-04 09:12 | disposition home or self-care (01) ==
LOC: ER 01:41
DX: R31.9 Hematuria, unspecified (principal); N39.0 Urinary tract infection, site not specified; I10 Essential (primary) hypertension; E11.9 Type 2 diabetes mellitus without complications; K21.9 Gastro-esophageal reflux disease without esophagitis; E78.00 Pure hypercholesterolemia, unspecified
CPT/HCPCS: 36415; 80053; 81001; 85025; 85610; 85730; 99284; J0696; J7050